=== PATIENT | male | born 1970 | race African-American/Black ===

== ENCOUNTER 2016-12-01 20:17 | Emergency (ER) | payer SELFPAY ==
[~2016-12-01] VITALS: Ht 185.4 cm; Wt 115.0 kg
[~2016-12-01 20:17] MED LIST: CEPH500 PO; SULF-154 PO
[2016-12-01 20:19] VITALS: BP 135/91; PULSE 59; RESP 16; TEMP 98; O2SAT 99
--- NOTE | 2016-12-01 21:20 | PD ---
HPI Chief Complaint: Pain: Acute or Chronic Time Seen by Provider: 21:01 Travel History International Travel<30 days: No Contact w/Intl Traveler<30days: No Traveled to known affect area: No History of Present Illness HPI 46-year-old black male presents emergency Department with complaints of pain in his right heel on or off now for the last 2 years. Pain is been worse for the last few months. He states that he has been to a pain doctor and has gotten shots in his foot on 3 prior occasions. He was diagnosed with plantar fasciitis. He denies any numbness, tingling or weakness. Pain is worse when he gets up in the morning and at night. Some relief with elevation. Worse with walking. History Past Medical Histgory Narrative Medical Plantar fasciitis Past Surgical History Surgical History: No Previous Surgery Social History Alcohol Use: No Tobacco Use: No Allergies-Medications (Allergen,Severity, Reaction): Coded Allergies: No Known Allergies (Verified , 12/01/16) Reported Meds & Prescriptions Reported Meds & Active Scripts Active Keflex 500 mg Cap (Cephalexin Monohydrate) 500 Mg Cap 500 Mg PO QID Septra Ds (Trimethoprim/Sulfamethoxazole) Tab 1 Tab PO BID Review of Systems Except as stated in HPI: all other systems reviewed are Neg Physical Exam Narrative GENERAL: This is a well-nourished, well-developed patient, in no apparent distress. SKIN: No rashes, ecchymoses or lesions. Warm and dry. HEAD: Atraumatic. Normocephalic. EYES: PERRL, EOMI, no discharge or injection. No scleral icterus. EARS: Clear NOSE: Nasal turbinates appear normal. THROAT: Mucosa pink and moist. Airway patent. NECK: Trachea midline. supple, moves head freely. LUNGS: Clear to auscultation. CV: Regular in rhythm. ABDOMEN: Soft nontender. EXT: No clubbing cyanosis or edema. Examination of the right foot reveals pain to the plantar portion of the heel. The skin is intact. He has no pain in the proximal or distal forefoot. No pain in his toes. Good Refill and pulses. Data Data Last Documented VS Vital Signs Date Time Temp Pulse Resp B/P Pulse Ox O2 Delivery O2 Flow Rate FiO2 12/01/16 20:19 98.0 59 16 135/91 99 Room Air MDM Medical Screen Exam Complete: Yes Emergency Medical Condition: No Differential Diagnosis MDM: High Differential diagnoses: Fracture, sprain, strain, dislocation, contusion, neurovascular injury, plantar fasciitis Narrative Course A medical screening exam was performed: At the time of evaluation the presenting medical condition was determined not to be of an emergent nature. The patient was given the option of receiving additional care, but declined. Patient was given options for additional community resources from which to obtain care. The Patient Has Been advised to seek medical attention for their presenting complaint. The patient has been advised to return to the ER at any time if an emergent condition develops. Primary Impression: Encounter for medical screening examination Condition: Stable Walter Vargas Dec 01, 2016 21:20
== END 2016-12-01 22:55 | disposition left against medical advice (07) ==
LOC: NEPB 20:17
DX: M72.2 Plantar fascial fibromatosis (principal)
CPT/HCPCS: 99281